=== PATIENT | male | born 1935 | race Caucasian/White ===

== ENCOUNTER → 2022-02-10 | Outpatient (CLI) | payer MEDICARE | LOC: CT 12:49 | DX: I65.23 Occlusion and stenosis of bilateral carotid arteries (principal); E11.9 Type 2 diabetes mellitus without complications | CPT/HCPCS: 36415; 70496; 70498; 82565; 84520; Q9965 ==

== ENCOUNTER → 2022-05-14 | Outpatient (CLI) | payer MEDICARE | LOC: KOH-I 03-31 10:30 | DX: R04.2 Hemoptysis (principal); R10.9 Unspecified abdominal pain; R91.8 Other nonspecific abnormal finding of lung field; I86.8 Varicose veins of other specified sites | CPT/HCPCS: 71250; 74176 ==